=== PATIENT | male | born 1980 | race African-American/Black ===

== ENCOUNTER 2023-05-10 11:59 | Emergency (ER) | payer MEDICAID ==
[~2023-05-10] VITALS: Ht 175.3 cm; Wt 85.0 kg
[~2023-05-10 11:59] MED LIST: INSU100C6; LANTUSUD
[2023-05-10 12:02] VITALS: BP 143/91; PULSE 91; RESP 16; TEMP 98.3; O2SAT 99
== END 2023-05-10 12:21 | disposition left against medical advice (07) ==
LOC: ER 12:09
DX: E10.649 Type 1 diabetes mellitus with hypoglycemia without coma (principal)
CPT/HCPCS: 82962; 99283

== ENCOUNTER 2023-06-10 23:05 | Emergency (ER) | payer MEDICAID, OTHER ==
[~2023-06-10] VITALS: Ht 185.4 cm; Wt 109.0 kg
[2023-06-10 23:28] VITALS: BP 136/97; PULSE 85; RESP 18; TEMP 98.4; O2SAT 98
== END 2023-06-11 00:05 | disposition home or self-care (01) ==
LOC: ER 23:05
DX: E11.649 Type 2 diabetes mellitus with hypoglycemia without coma (principal)
CPT/HCPCS: 82962; 99283

== ENCOUNTER 2025-03-21 07:31 | Emergency (ER) | payer OTHER ==
[~2025-03-21] VITALS: Ht 180.3 cm; Wt 86.0 kg
[2025-03-21 07:34] VITALS: O2SAT 99
[2025-03-21 08:23] LABS: BASOPHILS % 0.5 % (0.0-2.0); EOSINOPHILS % 0.3 % (0.0-5.0); HEMATOCRIT. 39.4 % (42.0-52.0); HEMOGLOBIN. 13.2 g/dL (14.0-18.0); LYMPHOCYTES % 12.6 % (20.0-50.0); MEAN PLATELET VOLUME 8.1 fl (7.4-10.4); MONOCYTES % 3.7 % (2.0-8.0); NEUTROPHILS % 82.9 % (40.0-76.0); PLATELET 227 x1000/uL (130-400); RED BLOOD CELL COUNT 4.20 mill/uL (4.7-6.1); RED CELL DISTRIBUTION WIDTH 14.1 % (11.6-14.6)
[2025-03-21 08:36] LABS: CREATININE 1.3 mg/dL (0.6-1.3); UREA NITROGEN BLOOD 15 mg/dL (9-23)
[2025-03-21 08:37] LABS: TROPONIN I HIGH SENSITIVITY 7 ng/L (3.0-53)
[2025-03-21 09:03] VITALS: BP 132/75; PULSE 97; RESP 20; TEMP 36.7; O2SAT 99
== END 2025-03-21 09:09 | disposition home or self-care (01) ==
LOC: ER 07:48
DX: E10.649 Type 1 diabetes mellitus with hypoglycemia without coma (principal); Z79.4 Long term (current) use of insulin
CPT/HCPCS: 36415; 80048; 82962; 84484; 85025; 99284

== ENCOUNTER 2025-04-05 06:53 | Emergency (ER) | payer OTHER ==
[~2025-04-05] VITALS: Ht 182.9 cm; Wt 91.0 kg
[2025-04-05 06:55] VITALS: BP 160/81; PULSE 86; RESP 14; O2SAT 100
== END 2025-04-05 07:25 | disposition left against medical advice (07) ==
LOC: ER 07:15
DX: E11.65 Type 2 diabetes mellitus with hyperglycemia (principal); Z53.29 Procedure and treatment not carried out because of patient's decision for other reasons
CPT/HCPCS: 82962; 99283

== ENCOUNTER 2025-04-08 13:34 | Emergency (ER) | payer OTHER ==
[~2025-04-08] VITALS: Ht 175.3 cm; Wt 94.0 kg
[2025-04-08 13:36] VITALS: O2SAT 100
[2025-04-08 14:02] VITALS: BP 135/81; PULSE 91; RESP 16; TEMP 36.4; O2SAT 100
[2025-04-08] MEDS: DEXTROSE 50% WATER 50ML SYRINGE IV ONE (14:03)
[2025-04-08 14:05] LABS: BASOPHILS % 0.3 % (0.0-2.0); EOSINOPHILS % 0.4 % (0.0-5.0); HEMATOCRIT. 47.4 % (42.0-52.0); HEMOGLOBIN. 15.6 g/dL (14.0-18.0); LYMPHOCYTES % 12.8 % (20.0-50.0); MEAN PLATELET VOLUME 7.8 fl (7.4-10.4); MONOCYTES % 5.6 % (2.0-8.0); NEUTROPHILS % 80.9 % (40.0-76.0); PLATELET 253 x1000/uL (130-400); RED BLOOD CELL COUNT 5.03 mill/uL (4.7-6.1); RED CELL DISTRIBUTION WIDTH 14.2 % (11.6-14.6)
[2025-04-08 14:21] LABS: CREATININE 1.6 mg/dL (0.6-1.3); UREA NITROGEN BLOOD 17.0 mg/dL (9-23)
== END 2025-04-08 15:47 | disposition home or self-care (01) ==
LOC: ER 13:34 → CMPBEDREQ 15:50
DX: E11.649 Type 2 diabetes mellitus with hypoglycemia without coma (principal); R55 Syncope and collapse
CPT/HCPCS: 36415; 80048; 82962; 85025; 99283